=== PATIENT | female | born 1985 | race Caucasian/White ===

== ENCOUNTER → 2020-10-16 | Outpatient (CLI) | payer MEDICAID ==
[2020-10-16 12:37] LABS: MICROSCOPIC AUTO
== END | disposition home or self-care (01) ==
LOC: STAR 11:25
PROVIDERS: ATTEND Urology
DX: U07.1 COVID-19 (principal); Z01.812 Encounter for preprocedural laboratory examination; N20.0 Calculus of kidney
CPT/HCPCS: 81001; 87077; 87086; 87186; 87635